=== PATIENT | female | born 1950 | race Caucasian/White ===

== ENCOUNTER → 2016-07-16 10:38 | Outpatient (CLI) | payer MEDICARE, BC ==
[2015-03-24 09:04] VITALS: BMI 20.1
[~2016-07-16 10:38] MED LIST: CALCIUM 600+D T1 TA1 PO; CALTRATE 600 M600 M1 PO; ESTRACE 0.5 MG0.5 MG PO; FERROUS SULFAT325 MG PO; FOLIC ACID1 MG PO; LISINOPRIL5 MG PO; MULTI-DAY VITAM1 TAB PO; NEURONTIN 300300 MG PO; NEXIUM40 MG PO; VITAMIN D5000 UNIT PO; XANAX0.5 MG PO
== END | disposition home or self-care (01) ==
LOC: D.MRI 10:38
DX: M54.5 Low back pain (principal)

== ENCOUNTER → 2016-07-19 09:11 | Outpatient (CLI) | payer MEDICARE, BC ==
[2015-03-24 09:04] VITALS: BMI 20.1
== END | disposition home or self-care (01) ==
LOC: D.US 09:11
DX: K76.9 Liver disease, unspecified (principal)

== ENCOUNTER 2016-08-27 09:48 | Outpatient (CLI) | payer MEDICARE, BC ==
[~2016-08-27 09:48] MED LIST changes: -FERROUS SULFAT325 MG PO; -FOLIC ACID1 MG PO
[2016-08-27] MEDS ORDERED: FERROUS SULFAT325 MG PO (10:14)
[2016-08-27] MEDS ORDERED: FOLIC ACID1 MG PO (10:14)
[2016-08-27 10:18] VITALS: Ht 157.5 cm
== END 2016-08-27 10:24 | disposition home or self-care (01) ==
LOC: D.OPS 09:48
DX: M81.0 Age-related osteoporosis without current pathological fracture (principal)

== ENCOUNTER → 2017-01-27 08:44 | Outpatient (CLI) | payer MEDICARE, BC ==
[~2017-01-27 08:44] MED LIST changes: +FERROUS SULFAT325 MG PO; +FOLIC ACID1 MG PO
== END | disposition home or self-care (01) ==
LOC: D.US 08:44
DX: K76.89 Other specified diseases of liver (principal)

== ENCOUNTER 2017-03-18 09:56 | Outpatient (CLI) | payer MEDICARE, BC ==
[~2017-03-18] VITALS: Ht 157.5 cm; Wt 45.5 kg
[2017-03-18 10:31] VITALS: BP 132/65; Ht 157.5 cm; Wt 45.5 kg
--- NOTE | 2017-03-18 10:36 | NUR ---
1036 DENIES PROBLEMS, RELEASED AMB.
== END 2017-03-18 10:36 | disposition home or self-care (01) ==
LOC: D.OPS 09:56
DX: M81.0 Age-related osteoporosis without current pathological fracture (principal)

== ENCOUNTER 2018-06-12 08:00 | Outpatient (CLI) | payer MEDICARE, BC ==
[2017-03-18 10:31] VITALS: BMI 18.3
== END 2018-06-12 09:00 | disposition home or self-care (01) ==
LOC: D.MAMMO 08:00
DX: Z12.31 Encounter for screening mammogram for malignant neoplasm of breast (principal)

== ENCOUNTER 2019-02-17 11:59 | Outpatient (CLI) | payer MEDICARE, BC ==
[~2019-02-17] VITALS: Ht 157.5 cm; Wt 50.0 kg
[~2019-02-17 11:59] MED LIST changes: +CALTRATE; -CALTRATE 600 M600 M1 PO
[2019-02-17] MEDS ORDERED: NEURONTIN 300300 MG (12:37)
[2019-02-17] MEDS ORDERED: ADVIL200 MG PO (12:39)
[2019-02-17 12:55] VITALS: BP 118/71; Ht 157.5 cm; Wt 50.0 kg
== END 2019-02-17 13:00 | disposition home or self-care (01) ==
LOC: D.OPS 11:59
PROVIDERS: ATTEND Family Medicine
DX: M81.0 Age-related osteoporosis without current pathological fracture (principal)

== ENCOUNTER → 2019-06-29 19:00 | Outpatient (CLI) | payer MEDICARE, BC ==
[2019-02-17 12:55] VITALS: BMI 20.1
[~2019-06-29 19:00] MED LIST changes: +ADVIL200 MG PO; +NEURONTIN 300300 MG
== END | disposition home or self-care (01) ==
LOC: D.MAMMO 06-11 14:30
PROVIDERS: ATTEND Family Medicine
DX: Z12.31 Encounter for screening mammogram for malignant neoplasm of breast (principal)

== ENCOUNTER → 2019-11-24 07:23 | Outpatient (CLI) | payer MEDICARE, BC ==
[2019-02-17 12:55] VITALS: BMI 20.1
== END | disposition home or self-care (01) ==
LOC: D.MRI 07:23
PROVIDERS: ATTEND Family Medicine
DX: R41.3 Other amnesia (principal)